=== PATIENT | female | born 1970 | race Hispanic/Latino ===

== ENCOUNTER 2017-04-01 10:46 | Emergency (ER) | payer MEDICAID ==
[2017-04-01 10:47] VITALS: BMI 24.1
[2017-04-01 11:03] VITALS: TEMP 97.6
[2017-04-01] MEDS ORDERED: DiphenhydrAMINE 50 mg/ml Inj IVP STA (11:15)
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
[2017-04-01] MEDS ORDERED: Sodium Chloride 0.9% 1,000 ML IV STA (11:29)
[2017-04-01 12:18] LABS: BASO # 0.02 K/mm3 (0.0-2.0); BASO % 0.3 % (0.0-3.0); EOS # 0.2 (0.0-0.7); EOS % 2.2 % (1.5-5.0); GRAN # 4.51 (1.4-6.5); HEMOGLOBIN 13.7 g/dL (12.0-16.0); LYMPH # 1.7 (1.2-3.4); LYMPH % 25.5 % (22.0-35.0); MEAN CORPUSCULAR HEMOGLOBIN 31.2 pg (25.0-35.0); MEAN CORPUSCULAR HGB CONC 32.9 g/dl (31.0-37.0); MEAN PLATELET VOLUME 11.5 fl (7.0-11.0); MONO # 0.4 (0.1-0.6); RBC 4.39 10^6/uL (3.5-6.1); RED CELL DISTRIBUTION WIDTH 13.6 % (11.5-14.5); WHITE BLOOD COUNT 6.8 10^3/ul (4.5-11.0)
[2017-04-01 13:17] VITALS: O2SAT 99
[2017-04-01 13:31] LABS: ALB/GLOB RATIO 1.3 (1.1-1.8); ALBUMIN 3.9 g/dL (3.0-4.8); ALT/SGPT 16 U/L (7-56); AST/SGOT 18 U/L (14-36); BLOOD UREA NITROGEN 9 mg/dL (7-21); CALCIUM 9.8 mg/dL (8.4-10.5); GFR AFRICAN-AMERICAN > 60; GFR NON-AFRICAN AMERICAN > 60
[2017-04-01 15:08] LABS: URINE APPEARANCE CLEAR (CLEAR); URINE BILIRUBIN NEGATIVE (NEGATIVE); URINE BLOOD TRACE-INTACT (NEGATIVE); URINE COLOR YELLOW (YELLOW); URINE GLUCOSE (UA) NEGATIVE (NEGATIVE); URINE LEUKOCYTE ESTERASE TRACE Leu/uL (NEGATIVE); URINE NITRATE NEGATIVE (NEGATIVE); URINE PROTEIN NEGATIVE mg/dL (<30 mg/dL); URINE UROBILINOGEN 0.2 E.U./dL (<1 E.U./dL)
[2017-04-01 15:12] LABS: URINE BACTERIA MOD (NEG)
[2017-04-01 16:24] VITALS: BP 123/80; PULSE 88; RESP 18
== END 2017-04-01 16:28 | disposition home or self-care (01) ==
LOC: ED 10:46
DX: M62.838 Other muscle spasm (principal); G47.00 Insomnia, unspecified
CPT/HCPCS: 80053; 81001; 85025; 87086; 96374; 99285; J1200; J7040

== ENCOUNTER 2018-03-24 07:17 | Outpatient (CLI) | payer MEDICAID | END 2018-03-24 07:18 | disposition home or self-care (01) | LOC: CARDIO 07:17 ==

== ENCOUNTER 2018-07-13 19:34 | Emergency (ER) | payer MEDICAID ==
[2018-07-13 19:35] VITALS: BMI 25.6
[2018-07-13 19:52] VITALS: BP 107/68; PULSE 72; RESP 18; TEMP 98.3; O2SAT 96
[2018-07-13] MEDS ORDERED: Oxycodone/Acetaminophen 5/325 mg Tab PO STA (20:03)
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
--- NOTE | 2018-07-14 08:28 | CT ---
Date of service: 07/13/2018 PROCEDURE: CT HEAD WITHOUT CONTRAST. HISTORY: fall COMPARISON: Noncontrast head CT 04/12/2013. TECHNIQUE: Axial computed tomography images were obtained through the head/brain without intravenous contrast. Radiation dose: Total exam DLP = 779.76 mGy-cm. This CT exam was performed using one or more of the following dose reduction techniques: Automated exposure control, adjustment of the mA and/or kV according to patient size, and/or use of iterative reconstruction technique. FINDINGS: HEMORRHAGE: No intracranial hemorrhage. BRAIN: Normal anne-white matter differentiation and density are appreciated throughout the cerebrum and cerebellum with the brainstem appearing unremarkable as well. There is no mass effect. There is no suspicious extra-axial fluid collection and the midline brain anatomy appears diffusely unremarkable. VENTRICLES: Unremarkable. No hydrocephalus. CALVARIUM: No destructive bony lesion or displaced fracture identified including through the skullbase. PARANASAL SINUSES: Partial imaging of a cyst or polyp at the left maxillary sinus. MASTOID AIR CELLS: Unremarkable as visualized. No inflammatory changes. OTHER FINDINGS: None. IMPRESSION: Unremarkable, stable unenhanced CT of the Head as compared prior unenhanced head CT 04/12/2013. No acute cranial or intracranial findings appreciable. Concordant preliminary report from [facility], 07/13/2018, 11:35 p.m..
--- NOTE | 2018-07-14 08:33 | CT ---
Date of service: 07/13/2018 PROCEDURE: CT Cervical Spine without contrast HISTORY: fall COMPARISON: None available. TECHNIQUE: Axial computed tomography images were obtained of the cervical spine without the use of intravenous contrast. Coronal and sagittal reformatted images were created and reviewed. Radiation dose: Total exam DLP = 255.46 mGy-cm. This CT exam was performed using one or more of the following dose reduction techniques: Automated exposure control, adjustment of the mA and/or kV according to patient size, and/or use of iterative reconstruction technique. FINDINGS: VERTEBRAE: No fracture. Normal alignment. No destructive bony lesion. DISCS/SPINAL CANAL/NEURAL FORAMINA: C2-3 is unremarkable and at C3-4, there is a minimal disc bulge without central canal or neural foraminal stenosis. At C4-5, minimal posterior osteophytic ridge is identified without stenosis. Bilateral neural foramina are patent widely. At C5-6, limited posterior osteophytic ridging is appreciate without central canal stenosis. No right neural foraminal stenosis. Lateral osteophytes causing mild left neural foraminal stenosis. At C6-7 and C7-T1, no central canal or neural foraminal stenosis is identified. Marked anterior spondylosis appreciated at mid inferior levels, predominantly C5-6 and C6-7, moderate at C4-5. PARASPINAL SOFT TISSUES: Unremarkable. OTHER FINDINGS: None. IMPRESSION: No fracture or spondylolisthesis identified. Limited left C6 root foraminal stenosis is appreciated on degenerative basis with remaining neural foramina and central canal widely patent. Preliminary report provided by Frieda, 07/13/2018, 11:35 p.m..
--- NOTE | 2018-07-14 08:41 | CT ---
Date of service: 07/13/2018 PROCEDURE: CT Thoracic Spine without contrast HISTORY: fall COMPARISON: None available. TECHNIQUE: Axial computed tomography images were obtained of the thoracic spine without intravenous contrast. Coronal and sagittal reformatted images were created and reviewed. Radiation dose: Total exam DLP = 254.68 mGy-cm. This CT exam was performed using one or more of the following dose reduction techniques: Automated exposure control, adjustment of the mA and/or kV according to patient size, and/or use of iterative reconstruction technique. FINDINGS: VERTEBRAE: Normal thoracic kyphosis noted however there is a questionable upper thoracic levoscoliotic deformity versus positional curve. No fracture or spondylolisthesis is encountered. No destructive bony lesions identified. DISCS/SPINAL CANAL/NEURAL FORAMINA: Within the limits of the CT technique, no disc herniation seen. No central canal stenosis throughout the exam or left neural foraminal stenosis. Moderate degenerative right neural foraminal stenoses are identified at T1, T2 and T3 due to degenerative osteophytes. Further, multilevel anterior spondylosis appreciated toward the right primarily at mid to inferior thoracic levels. PARASPINAL SOFT TISSUES: Unremarkable. OTHER FINDINGS: Unremarkable. IMPRESSION: No fracture or spondylolisthesis throughout the thoracic spine. Questionable limited levoscoliotic upper thoracic spinal deformity. Degenerative neural foraminal stenoses are moderate at the right T1, T2 and T3 neural foramina. No bony central canal stenosis appreciable throughout the thoracic spine.
--- NOTE | 2018-07-14 08:50 | CT ---
Date of service: 07/13/2018 PROCEDURE: CT Lumbar Spine without contrast HISTORY: fall COMPARISON: None available. TECHNIQUE: Axial computed tomography images were obtained of the lumbar spine without the use of intravenous contrast. Coronal and sagittal reformatted images were created and reviewed. Radiation dose: Total exam DLP = 351.34 mGy-cm. This CT exam was performed using one or more of the following dose reduction techniques: Automated exposure control, adjustment of the mA and/or kV according to patient size, and/or use of iterative reconstruction technique. FINDINGS: VERTEBRAE: L5 is a transitional vertebral body appearing somewhat sacralized. L1 is confirmed based on thoracic spine CT also performed 07/23/2018. No destructive bony lesion appreciated. No fracture. Normal lordotic alignment. DISCS/SPINAL CANAL/NEURAL FORAMINA: L1-2: Unremarkable. L2-3: Minimal disc bulge identified without significant stenosis. Widely patent central canal and bilateral neural foramina. L3-4: A mild posterior disc bulge flattens the ventral thecal sac mildly without significant central stenosis resulting. Neural foramina widely patent bilaterally. L4-5: [id number] posterior disc bulge flattens the ventral thecal sac causing borderline central stenosis. No definite neural foraminal stenosis bilaterally. L5-S1: No significant central canal or neural foraminal stenosis. L5 is transitional, sacralized appearance to some degree. 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 PARASPINAL SOFT TISSUES: Unremarkable. OTHER FINDINGS: None. IMPRESSION: 1. No fracture or spondylolisthesis throughout the lumbar spine. Normal curvature identified. 2. Limited posterior disc bulge is identified at L3-4 and L4-5 resulting only a borderline L4-5 central canal stenosis. No neural foraminal stenosis. No gross disc herniation throughout the exam. 3. Transitional L5 vertebral body. Preliminary report provided by Frieda, 07/13/2017, 11:54 p.m..
== END 2018-07-14 00:15 | disposition home or self-care (01) ==
LOC: ED 19:34
DX: S00.81XA Abrasion of other part of head, initial encounter (principal); M54.2 Cervicalgia; M54.9 Dorsalgia, unspecified; W01.0XXA Fall on same level from slipping, tripping and stumbling without subsequent striking against object, initial encounter; Y93.K1 Activity, walking an animal; F17.210 Nicotine dependence, cigarettes, uncomplicated